=== PATIENT | male | born 1970 | race Caucasian/White ===

== ENCOUNTER 2019-02-01 03:47 | Emergency (ER) | payer MEDICAID ==
[~2019-02-01] VITALS: Ht 170.2 cm; Wt 63.5 kg
--- NOTE | 2019-02-01 04:00 | NUR ---
ER Nurse Note: Pt seen, treated, medically cleared for discharge by ERMD. Discharge instuctions given with repeat verbalization by pt. Emphasized to follow up with primay care provider. All orders completed per ERMD orders. Pt a&ox4, VSS, no signs of distress. Pt stated no blurry vision, eyes flushed with water. ID band removed. All questions answered per pt's questions. Pt left with all belongings, left with own transportation.
[2019-02-01 04:03] VITALS: BP 124/75
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
== END 2019-02-01 04:10 | disposition home or self-care (01) ==
LOC: EMR 04:07
DX: H10.213 Acute toxic conjunctivitis, bilateral (principal); F17.200 Nicotine dependence, unspecified, uncomplicated
CPT/HCPCS: 99281

== ENCOUNTER 2019-06-25 15:16 | Emergency (ER) | payer MEDICAID ==
[~2019-06-25] VITALS: Ht 182.9 cm; Wt 99.8 kg
[2019-06-25 15:33] VITALS: BP 112/62
--- NOTE | 2019-06-25 15:35 | NUR ---
ED Nurse Note: Pt walked in to ER from home due to sore throat x 2 days. pt aao x4 and ambulatory. skin clean and intact. calm and cooperative. pt reported cough with yellow phlem. no cardiac or pulmonary distress noted at this time.
[2019-06-25] MEDS ORDERED: GUAIFENESIN DM118 M1 ORAL (15:36)
[2019-06-25 15:38] VITALS: BP 114/64
--- NOTE | 2019-06-25 15:38 | NUR ---
ER DISCHARGE NOTE: Patient is cleared to be discharged per ERMD, pt is aox4, on room air, with stable vital signs. pt was given dc and prescription instructions, pt was able to verbalize understanding, pt id band removed. pt is able to ambulate with steady gait. pt took all belongings.
--- NOTE | 2019-06-25 15:52 | Emergency Room Report ---
History of Present Illness General Chief Complaint: Flu Like Symptoms Source: Patient Present Illness HPI Is a 48-year-old male who presents after increased cough and congestion for the past 3 days. Patient reports having nasal congestion. He denies any fever. Reports having a mild sore throat. Reports having intermittent phlegm production. Denies any recent travel. He had no known contacts were sick with coronavirus. Patient states he is currently in a program. He states he is exposed to secondhand smoke regularly. Patient denies being a smoker. COVID-19 risk:Travel to affect: No Allergies: Coded Allergies: No Known Allergies (Unverified , 06/25/19) Patient History Past Medical History: see triage record Reviewed Nursing Documentation: PMH: Agreed; PSxH: Agreed Nursing Documentation-PMH Past Medical History: No Stated History Review of Systems All Other Systems: negative except mentioned in HPI Physical Exam Vital Signs Date Time Temp Pulse Resp B/P (MAP) Pulse Ox O2 Delivery O2 Flow Rate FiO2 06/25/19 15:22 98.1 74 17 112/62 (79) 74 Room Air General Appearance: well appearing, no apparent distress, alert, GCS 15 Head: normocephalic, atraumatic ENT: normal ENT inspection, hearing grossly normal, normal voice, uvula midline Neck: full range of motion, supple Respiratory: lungs clear, normal breath sounds, no rhonchi, no respiratory distress, speaking full sentences Cardiovascular #1: normal inspection, regular rate, rhythm, no edema Gastrointestinal: normal inspection, non tender, soft Musculoskeletal: no calf tenderness Neurologic: alert, motor strength/tone normal, wholesale buyer III-XII nml as tested, normal gait Psychiatric: mood/affect normal Skin: no rash Medical Decision Making Diagnostic Impression: Primary Impression: Viral upper respiratory infection ER Course Patient presented for cough. Differential diagnosis include was not limited to viral respiratory infection, upper respiratory infection, bronchitis, pneumonia among others. Patient has a benign exam and does not appear to require any imaging or laboratory testing at this time. Patient is afebrile with no known sick contacts or recent travel. Does not appear to be in any respiratory distress. Patient's pulse oximetry was normal despite incorrect notation by nursing staff. Oxygen saturation is normal and patient is currently afebrile. Is not taking antipyretics. Patient was noted to have symptoms consistent with a viral respiratory infection. Patient was advised to self quarantine for 14 days. Was advised to return if began having fever increased difficulty breathing or other concerns. The patient is advised to follow up with primary care doctor for recheck. Patient is advised to return if any worsening condition or if any changes in status that are concerning. This report is dictated with [employer] assistant software which may occasionally lead to discrepancies related to use of this software. Last Vital Signs Date Time Temp Pulse Resp B/P (MAP) Pulse Ox O2 Delivery O2 Flow Rate FiO2 06/25/19 15:38 98.1 76 20 114/64 76 Room Air Status: improved Disposition: HOME, SELF-CARE Condition: Stable Scripts Guaifenesin/Dextromethorphan* (Guaifenesin Dm Syrup*) 5 Ml Syrup 5 ML ORAL Q6H PRN for FOR COUGH, #118 ML Prov: Yuri Becker MD 06/25/19 Patient Instructions: Viral Respiratory Infection Additional Instructions: Self quarantine for 2 weeks. Return if worse. Yuri Becker MD Jun 25, 2019 15:52
== END 2019-06-25 15:38 | disposition home or self-care (01) ==
LOC: EMR 15:37
DX: J06.9 Acute upper respiratory infection, unspecified (principal); B97.89 Other viral agents as the cause of diseases classified elsewhere
CPT/HCPCS: 99281

== ENCOUNTER 2019-08-01 01:35 | Emergency (ER) | payer MEDICAID, OTHER ==
[~2019-08-01] VITALS: Ht 185.4 cm; Wt 74.8 kg
[~2019-08-01 01:35] MED LIST: GUAIFENESIN DM118 M1 ORAL
[2019-08-01] MEDS ORDERED: ZOLOFT100 MG ORAL (02:20)
--- NOTE | 2019-08-01 02:22 | NUR ---
ED Nurse Note: Patient walked in to ED d/t right knee pain 10/22 nonradiating. Patient aao x 4 and ambulatory with steady gait. Patient stable upon assessment.
--- NOTE | 2019-08-01 02:23 | NUR ---
ED Nurse Note: ERMD with patient.
--- NOTE | 2019-08-01 02:37 | Emergency Room Report ---
History of Present Illness General Chief Complaint: Lower Extremity Injury Source: Patient Present Illness HPI 48-year-old male presents ED complaining of right knee pain. States pain started today. Dull, 7 out of 10, nonradiating. Is able to bear weight. States that he had ACL repair in 2011. Has had on and off pain since. States he is walking a lot recently. No other aggravating relieving factors. Denies any other associated symptoms Allergies: Coded Allergies: No Known Allergies (Unverified , 06/25/19) COVID-19 Screening Contact w/high risk pt: No Recent Travel to affected area: No Experienced COVID-19 symptoms?: No Patient History Past Medical History: psych hx Past Surgical History: other - ACL repair R knee 2011 Pertinent Family History: none Social History: Denies: smoking, alcohol use, drug use Immunizations: UTD Reviewed Nursing Documentation: PMH: Agreed; PSxH: Agreed Nursing Documentation-PMH History Of Psychiatric Problem: Yes - depression Review of Systems All Other Systems: negative except mentioned in HPI Physical Exam Vital Signs Date Time Temp Pulse Resp B/P (MAP) Pulse Ox O2 Delivery O2 Flow Rate FiO2 08/01/19 02:14 98.2 82 16 138/86 (103) 98 Room Air Sp02 EP Interpretation: reviewed, normal General Appearance: no apparent distress, alert, GCS 15, non-toxic Head: normocephalic, atraumatic Eyes: bilateral eye normal inspection, bilateral eye PERRL ENT: normal ENT inspection Neck: normal inspection Respiratory: normal inspection Cardiovascular #1: normal inspection Gastrointestinal: normal inspection Rectal: deferred Genitourinary: no CVA tenderness Musculoskeletal: tender - R knee Neurologic: alert, motor strength/tone normal, oriented x3, sensory intact, responsive, speech normal Psychiatric: normal inspection Skin: no rash Lymphatic: normal inspection Procedures Splinting Splinting : Consent: Verbal Pre-Made Type: JITENDRA wrap Pre-Proc Neuro Vasc Exam: normal Post-Proc Neuro Vasc Exam: normal Patient Tolerated: Well Complications: None Medical Decision Making Diagnostic Impression: Primary Impression: Knee pain Qualified Codes: M25.561 - Pain in right knee; G89.29 - Other chronic pain ER Course Hospital Course 48 yo M presents with R knee pain Differential diagnoses include: Fracture, dislocation, sprain, contusion Clinical course Patient placed on stretcher. After initial history and physical, I ordered xrays R knee Xrays read shows no acute fracture/dislocation. significant osteoarthrosis discussed findings with patient. placed in jitendra wrap. A for discharge for close outpatient follow-up. I will provide Ortho referral Diagnosis - knee pain Stable and discharged to home with prescription for Motrin. apply ice, keep elevated. weight bear as tolerated. Followup with PMD/ortho. Return to ED if symptoms recur or worsen Other X-Ray Diagnostic Results Other X-Ray Diagnostic Results : X-Ray ordered: R knee # of Views/Limited Vs Complete: 3 View Indication: Pain EP Interpretation: Yes Interpretation: no dislocation, no soft tissue swelling, no fractures, other - tricompartmental osteoarthrosis Impression: No acute disease Electronically Signed by: Electronically signed by Floyd Basilio MD Last Vital Signs Date Time Temp Pulse Resp B/P (MAP) Pulse Ox O2 Delivery O2 Flow Rate FiO2 08/01/19 02:14 98.2 82 16 138/86 (103) 98 Room Air Status: improved Disposition: HOME, SELF-CARE Condition: Stable Scripts Ibuprofen* (MOTRIN*) 600 Mg Tablet 600 MG ORAL Q8H PRN for FOR PAIN, #30 TAB 0 Refills Prov: Floyd Basilio MD 08/01/19 Referrals: NON PHYSICIAN (PCP) Floyd Basilio MD Aug 01, 2019 02:37
--- NOTE | 2019-08-01 02:39 | NUR ---
ED Nurse Note: Xray at bedside.
[2019-08-01 03:10] VITALS: BP 128/89
--- NOTE | 2019-08-01 03:10 | NUR ---
ER DISCHARGE NOTE: Patient is cleared to be discharged per ERMD, pt is aox4, on room air, with stable vital signs. pt was given dc and prescription instructions, pt was able to verbalize understanding, pt id band removed. pt is able to ambulate with steady gait. pt took all belongings. pt stable upon discharge.
[2019-08-01] MEDS ORDERED: IBUPROFEN600 M1 ORAL (03:11)
--- NOTE | 2019-08-01 03:23 | Diagnostic Imaging Report ---
EXAM: XR Right Knee, 3 Views CLINICAL HISTORY: PAIN TECHNIQUE: Three views of the right knee. COMPARISON: No relevant prior studies available. FINDINGS: Bones/joints: Moderate tricompartmental osteoarthrosis. No acute or healing fracture or malalignment. No suspicious lytic or sclerotic lesions of bone Small amount of suprapatellar joint fluid. Small ossific body adjacent to the posterior femoral condyle may represent an intra-articular body. Soft tissues: Unremarkable. IMPRESSION: Moderate tricompartmental osteoarthrosis.
== END 2019-08-01 03:10 | disposition home or self-care (01) ==
LOC: EMR 02:18
DX: M25.561 Pain in right knee (principal); G89.29 Other chronic pain; F32.9 Major depressive disorder, single episode, unspecified; M17.11 Unilateral primary osteoarthritis, right knee
CPT/HCPCS: 73562; Z7502; 99283